=== PATIENT | female | born 1945 | race Caucasian/White ===

== ENCOUNTER 2017-11-29 17:29 | Emergency (ER) | payer OTHER ==
[~2017-11-29] VITALS: Ht 160 cm; Wt 73.0 kg
[~2017-11-29 17:29] MED LIST: AMLO2.5T PO; DOCU1CAP39 PO; HYDR-3580 PO; LISI-587 PO; METO10TA PO; PROT40TA PO; RIVA15 PO; SERT25TA83 PO; SIMV80TA PO; ZOFR4TAB3 PO
[2017-11-29 17:30] VITALS: BP 176/83; PULSE 103; RESP 18; TEMP 99.4; O2SAT 92
[2017-11-29] MEDS ORDERED: SODIUM CHLOR 0.9% 1000 ML INJ 1,000 ML IV ONE (18:00)
[2017-11-29] MEDS ORDERED: RESP: ALBUTEROL 2.5 MG/IPRATROPIUM 0.5 MG NEB (SCH) NEB ONE (18:00)
[2017-11-29] MEDS ORDERED: ACETAMINOPHEN 500 MG CPLT PO ONE (18:00)
[2017-11-29] MEDS ORDERED: methylPREDNISolone SOD SUCC 125 MG/2 ML VIAL IV PUSH ONE (18:00)
[2017-11-29] MEDS ORDERED: AMLO2.5T PO (18:14)
[2017-11-29] MEDS ORDERED: XARE15TA PO (18:14)
[2017-11-29] MEDS ORDERED: XARE20TA PO (18:14)
[2017-11-29] MEDS ORDERED: REGL10TA5 PO (18:14)
[2017-11-29] MEDS ORDERED: ZOFR4TAB3 SL (18:14)
[2017-11-29] MEDS ORDERED: SERT25TA83 PO (18:14)
[2017-11-29] MEDS ORDERED: SIMV40TA PO (18:14)
[2017-11-29] MEDS ORDERED: HYDR-3580 PO (18:14)
[2017-11-29] MEDS ORDERED: LISI20TA3 PO (18:14)
[2017-11-29] MEDS ORDERED: PROT40TA PO (18:14)
[2017-11-29 18:17] LABS: AUTOMATED NEUTROPHIL # 3.7 TH/MM3 (1.8-7.7); BASOPHIL # 0.3 TH/MM3 (0-0.2); BASOPHIL % 4.8 % (0.0-2.0); EOSINOPHIL % 0.3 % (0.0-4.0); HEMATOCRIT 47.3 % (35.0-46.0); HEMOGLOBIN 15.2 GM/DL (11.6-15.3); LYMPH % 15.5 % (9.0-44.0); LYMPHOCYTE # 0.8 TH/MM3 (1.0-4.8); MEAN CELL VOLUME 93.1 FL (80.0-100.0); MEAN CORPUSCULAR HEMOGLOBIN 29.9 PG (27.0-34.0); MEAN CORPUSCULAR HGB CONC 32.1 % (32.0-36.0); MEAN PLATELET VOLUME 9.4 FL (7.0-11.0); MONO % 10.2 % (0.0-8.0); MONOCYTE # 0.5 TH/MM3 (0-0.9); NEUT % 69.2 % (16.0-70.0); PLATELET COUNT 136 TH/MM3 (150-450); RED BLOOD COUNT 5.08 MIL/MM3 (4.00-5.30); RED CELL DISTRIBUTION WIDTH 13.3 % (11.6-17.2); WHITE BLOOD COUNT 5.3 TH/MM3 (4.0-11.0)
[2017-11-29 18:24] LABS: CHLORIDE 100 MEQ/L (98-107); SODIUM (NA) 136 MEQ/L (136-145)
--- NOTE | 2017-11-29 18:24 | PD ---
HPI Chief Complaint: Cold / Flu Symptoms Time Seen by Provider: 17:44 Travel History International Travel<30 days: No Contact w/Intl Traveler<30days: No Traveled to known affect area: No History of Present Illness HPI This is a 72-year-old female who presents to the emergency department with 1 week of flulike symptoms with cough productive with yellow sputum, rhinorrhea, some sore throat and body aches and myalgias. She's had intermittent fevers and chills. Her symptoms of been constant, worsening and she feels very fatigued and has spent most of her time in bed. She did get the flu shot this year. Her is sick with similar symptoms. She does have a [id number] smoking history. She also has a history of blood clot and is on Xarelto. PFSH Past Medical History Arthritis: Yes Blood Disorders: No Anxiety: No Depression: No Cancer: No Cardiovascular Problems: Yes (HTN) High Cholesterol: Yes Diabetes: No Diminished Hearing: No Deep Vein Thrombosis: Yes Endocrine: No Gastrointestinal Disorders: Yes GERD: Yes Genitourinary: No Hypertension: Yes Immune Disorder: No Implanted Vascular Access Dvce: Yes Musculoskeletal: Yes (BACK PAIN) Neurologic: No Psychiatric: No Reproductive: No Respiratory: Yes (PE) Thyroid Disease: No Tetanus Vaccination: Unknown ?: Not Menopausal: Yes Tubal Ligation: Yes Past Surgical History Abdominal Surgery: Yes (GALL BLADDER-95) Appendectomy: Yes Body Medical Devices: NONE Cholecystectomy: Yes Gynecologic Surgery: Yes (TUBAL LIGATION-71,HYSTERECTOMY-73) Hysterectomy: Yes Joint Replacement: Yes (RIGHT PARTIAL KNEE) Neurologic Surgery: No Pacemaker: No Other Surgery: Yes (BACK FOR SIATICA, BACK SURGERY) Social History Alcohol Use: Yes (OCCASIONAL) Tobacco Use: No Substance Use: No Allergies-Medications (Allergen,Severity, Reaction): Coded Allergies: No Known Allergies (Verified Adverse Reaction, Unknown, 11/29/17) Reported Meds & Prescriptions Reported Meds & Active Scripts Active Reported Xarelto (Rivaroxaban) 20 Mg Tab 20 Mg PO DAILY Zofran Odt (Ondansetron Odt) 4 Mg Tab 4 Mg SL Q8HR PRN Reglan (Metoclopramide HCl) 10 Mg Tab 10 Mg PO TIDAC Sertraline (Sertraline HCl) 25 Mg Tab 25 Mg PO DAILY Protonix (Pantoprazole Sodium) 40 Mg Tab 40 Mg PO DAILY Hydrocodone-Acetamin 7.5-325 (Hydrocodone/Acetaminophen) 7.5 Mg-325 Mg Tablet 1 Tab PO Q4HR Amlodipine (Amlodipine Besylate) 2.5 Mg Tab 2.5 Mg PO DAILY Simvastatin 40 Mg Tab 40 Mg PO HS Lisinopril-Hctz 20-25 Mg Tab 1 Tab PO DAILY Review of Systems Except as stated in HPI: all other systems reviewed are Neg Physical Exam Narrative GENERAL:Well appearing, no acute distress SKIN: Focused skin assessment warm and dry. HEAD: Atraumatic. Normocephalic. EYES: Pupils equal and round. No injection or drainage. ENT: Moist mucous membranes. Mild posterior pharyngeal erythema with no exudates. NECK: Trachea midline. CARDIOVASCULAR: Regular rate and rhythm. No murmur appreciated. RESPIRATORY: Wheezing in the bilateral upper lung gregg, no increased work of breathing or accessory muscle use GASTROINTESTINAL: Abdomen soft, non-tender, nondistended. MUSCULOSKELETAL: No obvious deformities. NEUROLOGICAL: Awake and alert. No obvious cranial nerve deficits. Moving all extremities. PSYCHIATRIC: Appropriate mood and affect; insight and judgment normal. Data Data Last Documented VS Vital Signs Date Time Temp Pulse Resp B/P (MAP) Pulse Ox O2 Delivery O2 Flow Rate FiO2 11/29/17 17:44 18 92 Room Air 11/29/17 17:30 99.4 103 176/83 (114) Orders Orders Complete Blood Count With Diff (11/29/17 17:53) Comprehensive Metabolic Panel (11/29/17 17:53) Lactic Acid (11/29/17 17:53) Chest, Single Ap (11/29/17 ) Albuterol-Ipratropium Neb (Duoneb Neb) (11/29/17 18:00) Methylprednisolone So Succ Inj (Solumedr (11/29/17 18:00) Sodium Chlor 0.9% 1000 Ml Inj (Ns 1000 M (11/29/17 18:00) Acetaminophen (Tylenol) (11/29/17 18:00) Influenzae A/B Antigen (11/29/17 17:53) Labs Laboratory Tests Test 11/29/17 17:55 White Blood Count 5.3 TH/MM3 Red Blood Count 5.08 MIL/MM3 Hemoglobin 15.2 GM/DL Hematocrit 47.3 % Mean Corpuscular Volume 93.1 FL Mean Corpuscular Hemoglobin 29.9 PG Mean Corpuscular Hemoglobin Concent 32.1 % Red Cell Distribution Width 13.3 % Platelet Count 136 TH/MM3 Mean Platelet Volume 9.4 FL Neutrophils (%) (Auto) 69.2 % Lymphocytes (%) (Auto) 15.5 % Monocytes (%) (Auto) 10.2 % Eosinophils (%) (Auto) 0.3 % Basophils (%) (Auto) 4.8 % Neutrophils # (Auto) 3.7 TH/MM3 Lymphocytes # (Auto) 0.8 TH/MM3 Monocytes # (Auto) 0.5 TH/MM3 Eosinophils # (Auto) 0.0 TH/MM3 Basophils # (Auto) 0.3 TH/MM3 CBC Comment DIFF FINAL Differential Comment Blood Urea Nitrogen 13 MG/DL Creatinine 0.99 MG/DL Random Glucose 88 MG/DL Total Protein 7.8 GM/DL Albumin 4.0 GM/DL Calcium Level 9.6 MG/DL Alkaline Phosphatase 99 U/L Aspartate Amino Transf (AST/SGOT) 28 U/L Alanine Aminotransferase (ALT/SGPT) 24 U/L Total Bilirubin 1.2 MG/DL Sodium Level 136 MEQ/L Potassium Level 3.7 MEQ/L Chloride Level 100 MEQ/L Carbon Dioxide Level 27.5 MEQ/L Anion Gap 9 MEQ/L Estimat Glomerular Filtration Rate 55 ML/MIN Lactic Acid Level 0.9 mmol/L MDM Medical Decision Making Medical Screen Exam Complete: Yes Emergency Medical Condition: Yes Interpretation(s) Temperature is 99.4, tachycardic, mildly hypoxic No leukocytosis 10% monocytes Electrolytes are reassuring Lactic acidosis 0.9 Chest x-ray: Interstitial lung disease Differential Diagnosis Bronchitis, pneumonia, influenza, sepsis, COPD Narrative Course This is a 72-year-old female who presents to the emergency department with flulike symptoms for one week associated with a productive cough and wheezing on exam. She is mildly hypoxic at 92-93%. Labs are all reassuring. She is given a liter of IV fluid, IV steroids and a bronchodilator. Chest x-ray demonstrates an interstitial pattern which I suspect may be atypical pneumonia. I think it's reasonable to treat the patient with antibiotics, prednisone and a bronchodilator at home given her smoking history. Patient appears otherwise nontoxic and I think is appropriate for outpatient management. Diagnosis Primary Impression: Atypical pneumonia Patient Instructions: General Instructions Additional Instructions: If you develop severe chest pain, shortness of breath, sweating, lightheadedness , dizziness or difficulty breathing return to the emergency department immediately. Followup with your primary care physician in 2-3 days if your symptoms are not resolved. Med/Other Pt SpecificInfo: Prescription(s) given Scripts Albuterol 8.5 GM Inh (Proair Hfa 8.5 GM Inh) 90 Mcg/Act Aer 2 PUFF INH Q6H Y for SHORTNESS OF BREATH, #1 INHALER 0 Refills 108 mcg/actuation Prov: Cat Lora MD 11/29/17 Prednisone (Prednisone) 20 Mg Tab 40 MG PO DAILY, #10 TAB 0 Refills Take 40 mg (2 tablets) daily for 5 days Prov: Cat Lora MD 11/29/17 Azithromycin (Azithromycin) 250 Mg Tab 250 MG PO DIRECTED for Infection, #6 TAB 0 Refills Take 2 tabs (500 mg) on day 1 then 1 tab daily x 4 days. Prov: Cat Lora MD 11/29/17 Disposition: 01 DISCHARGE HOME Condition: Stable Cat Lora MD Nov 29, 2017 18:24
[2017-11-29 18:27] LABS: CALCIUM 9.6 MG/DL (8.5-10.1)
[2017-11-29 18:28] LABS: BICARBONATE 27.5 MEQ/L (21.0-32.0); BLOOD UREA NITROGEN 13 MG/DL (7-18); GLUCOSE,RANDOM 88 MG/DL (74-106)
--- NOTE | 2017-11-29 18:28 | RADRPT ---
EXAM DATE/TIME: 11/29/2017 18:03 [facility] COMPARISON: No previous studies available for comparison. INDICATIONS : Short of breath, cough MEDICAL HISTORY : None. SURGICAL HISTORY : None. ENCOUNTER: Initial ACUITY: 1 day PAIN SCORE: 0/10 LOCATION: Bilateral chest FINDINGS: A single view of the chest demonstrates mild generalized interstitial prominence. There is no evidenc e of consolidating airspace disease mass densities or effusions. The cardiomediastinal contours are u nremarkable. Osseous structures are intact. CONCLUSION: 1. Interstitial lung disease which may be chronic. 2. No evidence of acute consolidating infiltrate or mass densities or effusions. Raulito Cortez MD on November 29, 2017 at 18:25 Board Certified Radiologist. This report was verified electronically.
[2017-11-29 18:31] LABS: ALT (GPT) 24 U/L (10-53); AST (GOT) 28 U/L (15-37); CREATININE 0.99 MG/DL (0.50-1.00); GLOMERULAR FILTRATION RATE 55 ML/MIN (>89)
[2017-11-29 18:32] LABS: TOTAL BILIRUBIN ADULT 1.2 MG/DL (0.2-1.0); TOTAL PROTEIN 7.8 GM/DL (6.4-8.2)
[2017-11-29 18:34] LABS: ALKALINE PHOSPHATASE 99 U/L (45-117)
[2017-11-29] MEDS ORDERED: PRED20 PO (18:58)
[2017-11-29] MEDS ORDERED: AZIT250T3 PO (18:58)
[2017-11-29] MEDS ORDERED: ALBUAER3 INH (18:58)
[2017-11-29 19:08] VITALS: BP 168/78; PULSE 90; RESP 18; O2SAT 97
== END 2017-11-29 19:36 | disposition home or self-care (01) ==
LOC: PHED 17:29
DX: J18.9 Pneumonia, unspecified organism (principal); R06.2 Wheezing; F17.210 Nicotine dependence, cigarettes, uncomplicated; I10 Essential (primary) hypertension; Z79.01 Long term (current) use of anticoagulants; Z86.718 Personal history of other venous thrombosis and embolism
CPT/HCPCS: 71045; 80053; 83605; 85025; 87804; 94664; 96361; 96374; 99284; J2930; J7030